=== PATIENT | male | born 1970 | race Caucasian/White ===

== ENCOUNTER → 2020-09-06 09:56 | Outpatient (CLI) | payer OTHER, SELFPAY ==
[2020-09-06 12:52] LABS: Absolute Lymphocyte Count 2.25 X10^3/uL (0.83-4.51); Absolute Neutrophil Count 2.4 X10^3/uL (2.0-7.7); Basophil# 0.08 X10^3/uL; Basophil% 1.5 % (0-1); Eosinophils% 1.8 % (0-5); Hematocrit 47.3 % (40-54); Hemoglobin 15.2 g/dL (13.0-16.5); Lymphocyte # 2.25 X10^3/ul (4.0); Lymphocyte % 41.4 % (19-41); Mean Corp Hgb Conc 32.1 g/dL (32-36); Mean Corpuscular Hgb 30.4 pg (27.0-32.0); Mean Corpuscular Volume 94.6 fL (80-94); Mean Platelet Vol. 9.3 fl (6.2-12.0); NRBC Flagged by Analyzer 0 % (0-5); Neutrophil # 2.37 X10^3/uL (2.7-7.7); Neutrophil % 43.7 % (47-70); Platelet Count 307 K/mm3 (150-450); RBC Distribution Width CV 13.5 % (11.6-14.6); RBC Distribution Width SD 47.6 fl (35.1-43.9); White Blood Count 5.4 K/mm3 (4.4-11.0)
[2020-09-06 12:55] LABS: ALB/GLOB Ratio 0.9 RATIO (0.9-2.4); AST(SGOT) 20 U/L (15-37); Alanine Aminotransfer ALT/SGPT 29 U/L (16-61); Albumin, Serum 3.9 g/dL (3.2-5.0); Alkaline Phosphatase 75 U/L (45-117); Anion Gap 2 (5-15); BUN 13 mg/dL (7-18); Calcium,Total 9.2 mg/dL (8.5-10.1); Chloride 104 mmol/L (98-107); Cholesterol 192 mg/dL (200); Creatinine, Serum 0.93 mg/dL (0.70-1.30); EST Glomerular Filtration Rate 91 mL/min (>60); Est Glom Filt Rate - Afr Amer 110 mL/min (>60); Globulin 4.2 g/dL (2.2-4.2); Glucose 90 mg/dL (74-106); High Density Lipoprotein 117 mg/dL; PSA,Total - Annual Screen 6.44 ng/mL (0.00-4.00); Potassium 4.2 mmol/L (3.5-5.1); Protein, Total 8.1 g/dL (6.4-8.2); Sodium Level 137 mmol/L (136-145); Triglycerides 55 mg/dL; Very Low Density Lipoprotein 11 mg/dL (5-40)
== END ==
PROVIDERS: PCP Family Medicine; Visit Provider Family Medicine
DX: Z00.00 Encounter for general adult medical examination without abnormal findings (principal); Z12.5 Encounter for screening for malignant neoplasm of prostate
CPT/HCPCS: 36415; 80053; 80061; 84153; 85025; G0103

== ENCOUNTER → 2020-12-28 17:14 | Outpatient (CLI) | payer OTHER, SELFPAY | PROVIDERS: PCP Family Medicine; Visit Provider Family Medicine | DX: Z11.52 Encounter for screening for COVID-19 (principal) | CPT/HCPCS: 87635; U0005; U0003 ==

== ENCOUNTER → 2022-06-04 | Outpatient (CLI) | payer OTHER, SELFPAY ==
[2022-06-04 17:59] LABS: PSA,Total - Annual Screen 6.08 ng/mL (0.00-4.00)
== END | disposition home or self-care (01) ==
LOC: BFHLAB 14:31
PROVIDERS: PCP Family Medicine; Visit Provider Family Medicine
DX: Z12.5 Encounter for screening for malignant neoplasm of prostate (principal)
CPT/HCPCS: 36415; 84153; G0103

== ENCOUNTER 2022-08-12 08:38 | Day surgery (SDC) | payer OTHER, SELFPAY ==
[2022-08-12 08:58] VITALS: BP 140/78; PULSE 55; RESP 16; TEMP 36.3; O2SAT 98; BMI 25.8
[2022-08-12] MEDS: Lactated Ringers 1,000 ML 15 ML IV (09:01)
--- NOTE | 2022-08-12 09:35 | H&P.OPEN ---
HPI - General HPI Narrative HEIDI DÍAZ, is a 52 M who presents for screening colonoscopy. Patient has never had a colonoscopy in the past. He denies any abdominal pain or blood in the stool. He has no family history of colon cancer. [facility] Medical History (Updated 08/06/22 @ 14:12 by Fabiola Garrett) Ankylosing spondylitis BPH w urinary obs/LUTS Chronic sinusitis Elevated PSA Family history of prostate cancer Former smoker History of echocardiogram History of irregular heartbeat Prostate disease Wears contact lenses Wears glasses Home Medications cholecalciferol (vitamin D3) 25 mcg (1,000 unit) capsule 25 mcg PO DAILY 07/22/22 [History Last Taken Unknown] multivitamin 1 tab PO DAILY 07/22/22 [History Last Taken Unknown] saw palmetto 160 mg capsule 160 mg PO BID 07/22/22 [History Last Taken Unknown] tamsulosin 0.4 mg capsule 0.4 mg PO QHS 07/22/22 [History Last Taken Unknown] vitamin E (dl, acetate) 45 mg (100 unit) capsule 45 mg PO DAILY 07/22/22 [History Last Taken Unknown] Allergy/AdvReac Type Severity Reaction Status Date / Time No Known Allergies Allergy Verified 08/12/22 08:56 Family History (Updated 07/22/22 @ 14:46 by Nohelia Tao) Grandfather Cancer Uncle Cancer of pharynx Father Prostate cancer Surgical History History of tonsillectomy Social History (Updated 07/22/22 @ 14:46 by Nohelia Tao) household members: spouse current occupational status: employed Smoking Status: Current some day smoker tobacco type: cigarettes Past Medical/Surgical History Planned Operation Planned Operative Procedure/s: COLONOSCOPY Previous Hospitalizations/Surgeries HX Hospitalizations: No Any Problems With Anesthesia: No You/Your Family Experience Fever (Hyperthermia) With Anes: No Cholinesterase deficiency: No Cardiovascular Hx Hypertension: No Respiratory Hx Sleep Apnea: No Hx Respiratory Tract Infection/Cold (presently): No Do You Snore Loudly (louder than talking or can be heard): No Do You Often Feel Tired/ Fatigued/ Sleepy Dring Daytime?: No Has Anyone Observed You Stop Breathing During Sleep?: No Result (for STOP score): Negative Smoking Status: Current some day smoker Neurological Does patient have nerve stimulator: No Miscellaneous Recent Exposure to Contagious Disease: No Allergies No Known Allergies Allergy (Verified 08/12/22 08:56) Discharge Is Pt Admitted From a Snf, or a [place] [facility]: No Who Could Help: After D/C, Where Do you Plan to Go: Return Home Vital Signs Vital Signs Vital Signs: 08/12/22 08:58 08/12/22 08:58 Temperature 97.4 F L Temperature Source Temporal Pulse Rate 55 L Respiratory Rate 16 Respiratory Pattern Normal Blood Pressure 140/78 H Blood Pressure Mean 98 Blood Pressure Source Monitor Blood Pressure Position Sitting Blood Pressure Location Right Arm Pulse Ox 98 Oxygen Delivery Method Room Air Weight Weight: 185 lb 3.013 oz Body Mass Index (BMI) 25.8 Physical Exam Const alert and oriented x3 HEENT normocephalic Eyes PERRL Resp normal respiratory effort and normal air movement Cardio regular rate and regular rhythm GI soft to palpation, non-tender and non-distended Extremity normal to inspection Assessment & Plan Assessment/Plan (1) Encounter for screening for malignant neoplasm of colon: PLAN: I explained endoscopy in detail to the patient. I explained the risks including but not limited to stroke or heart attack with anesthesia, perforation of the GI tract, bleeding, infection. I explained that any of these could necessitate further emergency surgery. The patient understands and all questions were answered sufficiently. The patient wishes to proceed with procedure. Rafiq Ramires MD Pager: [facility] [address] [place] [address], [address] [place] [address] Office: Surgery Risks - Colonoscopy Risks Include but are not Limited To: Risks include but are not limited to: Bleeding, perforation requiring further surgery, inability to complete colonoscopy requiring barium enema.
--- NOTE | 2022-08-12 10:00 | OP.COLON_ITS ---
Patient Name: Jignesh Stapleton Procedure Date: 08/12/2022 9:41 AM Date of : 1970 Age: 52 Procedure: Colonoscopy Indications: Screening for colorectal malignant neoplasm Providers: Rafiq Ramires MD Referring MD: Rafiq Ramires MD Medicines: Monitored Anesthesia Care Patient Profile: This is a 52 year old male. Refer to note in patient chart for documentation of history and physical. Last Colonoscopy: none. The patient's first colonoscopy is today. Complications: No immediate complications. Procedure: Pre-Anesthesia Assessment: - Prior to the procedure, a History and Physical was performed, and patient medications and allergies were reviewed. The patient's tolerance of previous anesthesia was also reviewed. The risks and benefits of the procedure and the sedation options and risks were discussed with the patient. All questions were answered, and informed consent was obtained. Prior Anticoagulants: The patient has taken no previous anticoagulant or antiplatelet agents. After reviewing the risks and benefits, the patient was deemed in satisfactory condition to undergo the procedure. After I obtained informed consent, the scope was passed under direct vision. Throughout the procedure, the patient's blood pressure, pulse, and oxygen saturations were monitored continuously. The pediatric colonoscope was introduced through the anus and advanced to the cecum, identified by appendiceal orifice and ileocecal valve. The colonoscopy was performed without difficulty. The patient tolerated the procedure well. The quality of the bowel preparation was good. Scope In: 9:48:23 AM Scope Withdrawal Time 0 hours 3 minutes 56 seconds Scope Out: 9:57:17 AM Total Procedure Duration Time 0 hours 8 minutes 54 seconds Findings: The entire examined colon appeared normal on direct and retroflexion views. Impression: - The entire examined colon is normal on direct and retroflexion views. - No specimens collected. Recommendation: - Discharge patient to home. - Resume previous diet. - Continue present medications. - Repeat colonoscopy in 10 years for screening purposes. Procedure Code(s): --- Professional --- 51246, Colonoscopy, flexible; diagnostic, including collection of specimen(s) by brushing or washing, when performed (separate procedure) Diagnosis Code(s): --- Professional --- Z12.11, Encounter for screening for malignant neoplasm of colon CPT copyright 2017 [employer] [place] [employer]. All rights reserved. The codes documented in this report are preliminary and upon branch operations coordinator review may be revised to meet current compliance requirements. Rafiq Ramires MD 08/12/2022 10:00:13 AM This report has been signed electronically. Number of Addenda: 0 Note Initiated On: 08/12/2022 9:41 AM
[2022-08-12 10:01] VITALS: BP 111/82; BP 140/78; PULSE 55; RESP 14; TEMP 36.8; O2SAT 97
--- NOTE | 2022-08-12 10:01 | OP.CCLET_ITS ---
08/12/2022 Aidan Iraheta [address] [place] [address] Re : Colonoscopy procedure for [facility] Dear Dr. Iraheta This procedure was performed on Friday, August 12, 2022. My impressions and recommendations are as follows: Impressions : - The entire examined colon is normal on direct and retroflexion views. - No specimens collected. Recommendations : - Discharge patient to home. - Resume previous diet. - Continue present medications. - Repeat colonoscopy in 10 years for screening purposes. My findings are described in the full procedure note, which is enclosed. If I can be of further assistance, please feel free to contact me at Doctor phone number(s): , Work: . Sincerely, Rafiq Ramires MD 08/12/2022 10:00:13 AM This report has been signed electronically.
[2022-08-12 10:05] VITALS: BP 110/79; BP 140/78; PULSE 54; RESP 14; O2SAT 97
[2022-08-12 10:10] VITALS: BP 112/79; BP 140/78; PULSE 65; RESP 14; O2SAT 99
[2022-08-12 10:16] VITALS: BP 110/79; BP 140/78; PULSE 57; RESP 14; TEMP 37.2; O2SAT 96
[2022-08-12 10:27] VITALS: BP 140/78
== END 2022-08-12 10:35 | disposition home or self-care (01) ==
LOC: EN 08:39 → AC 08:41
PROVIDERS: PCP Family Medicine; Referring Provider Surgery; Visit Provider Surgery
PROC: 0DJD8ZZ Inspection of Lower Intestinal Tract, Via Natural or Artificial Opening Endoscopic (ICD-10-PCS; CPT 45378; principal; 2022-08-12 09:40)
DX: Z12.11 Encounter for screening for malignant neoplasm of colon (principal); F17.200 Nicotine dependence, unspecified, uncomplicated; Z80.42 Family history of malignant neoplasm of prostate
CPT/HCPCS: 45378; J7120; J2405

== ENCOUNTER → 2023-02-04 | Outpatient (CLI) | payer OTHER, SELFPAY ==
[2023-02-04 12:57] LABS: PSA,Total- Diagnostic 6.61 ng/mL (0.0-4.0)
== END | disposition home or self-care (01) ==
LOC: BFHLAB 10:58
PROVIDERS: PCP Family Medicine; Referring Provider Family Medicine; Visit Provider Family Medicine
DX: R97.20 Elevated prostate specific antigen [PSA] (principal)
CPT/HCPCS: 36415; 84153

== ENCOUNTER → 2023-03-06 | Outpatient (CLI) | payer OTHER, SELFPAY ==
--- NOTE | 2023-03-06 07:39 | MRI_ITS ---
STUDY: MR PELVIS WITH AND WITHOUT CONTRAST (PROSTATE) REASON FOR EXAM: Male, 52 years old. Prostatomegaly with elevated PSA TECHNIQUE: Standardized multiparametric prostate MRI with T1, T2, DWI/ADC sequences were obtained in 3 orthogonal planes, and dynamic contrast enhancement sequences. 19 ml of clariscan contrast material was administered intravenously for the contrast portion of the examination. COMPARISON: None. FINDINGS: The prostate volume measures 81 mm3. The contours of the prostate gland are smooth. There is mass effect on the bladder base. The transition zone is heterogenous. PI-RADS DWI score 3 - Focal mildly hypointense on ADC and isointense/mildly hyperintense on high b-value DWI in the posterior mid transitional zone on image 19 series 600/601. PI-RADS T2W score 4 - Non-circumscribed, homogeneous, moderately hypointense, and <1.5 cm in greatest dimension as seen on image 15-16 series 8 with lesion measuring 1.0 x 1.1 cm along the posterior mid transitional zone. Contrast enhancement no early or contemporaneous enhancement; or diffuse multifocal enhancement NOT corresponding to a focal finding on T2W and/or DWI or focal ehancement responding to a lesion demonstrating features of BPH onT2WI (including features of extruded BPH in the PZ). The peripheral zone is homogenous. PI-RADS DWI score 1 - No abnormality (normal) on ADC or high b-value DWI. PI-RADS T2W score 1 - Uniformaly hyperintense (normal). Contrast enhancement no early or contemporaneous enhancement; or diffuse multifocal enhancement NOT corresponding to a focal finding on T2W and/or DWI or focal enhancement responding to a lesion demonstrating features of BPH onT2WI (including features of extruded BPH in the PZ). The seminal vesicles demonstrate normal margins and T2 signal pattern. No mass lesion or invasion depicted. The rectoprostatic angles are normal. Urinary bladder is normal without wall thickening. The vascular structures of the are normal. The visualized hollow viscus structures are normal. No bone marrow edema or mass lesion depicted. MRI/Pelvis W/WO Contrast IMPRESSION: 1. PIRADS v2.1 2019 -- 4 - High (clinically significant cancer is likely). Electronically Signed: Oniel Nagel (Brooks), at 7:33 EDT ,
== END | disposition home or self-care (01) ==
PROVIDERS: PCP Family Medicine; Referring Provider Urology; Visit Provider Urology
DX: R97.20 Elevated prostate specific antigen [PSA] (principal); Z80.42 Family history of malignant neoplasm of prostate
CPT/HCPCS: 72197; A9575

== ENCOUNTER 2023-03-16 05:48 | Day surgery (SDC) | payer OTHER, SELFPAY ==
--- NOTE | 2023-03-10 06:40 | EKG12_ITS ---
Test Reason : PRE OP Blood Pressure : / mmHG Vent. Rate : 079 BPM Atrial Rate : 079 BPM P-R Int : 166 ms QRS Dur : 082 ms QT Int : 382 ms P-R-T Axes : 041 067 054 degrees QTc Int : 438 ms Normal sinus rhythm Normal ECG Confirmed by JUSTIN BRAXTON ([id number]), general expeditor MARCELA CAZARES ([id number]) on 03/14/2023 9:35:55 AM Referred By: Rafiq Ramires Confirmed By:JUSTIN BRAXTON
[2023-03-16 06:41] VITALS: BP 133/80; PULSE 69; RESP 12; TEMP 36.2; O2SAT 98; BMI 27.0
[2023-03-16] MEDS: Lactated Ringers 1,000 ML 15 ML IV ×2 (06:45→08:45)
--- NOTE | 2023-03-16 07:13 | PCM.HP.BLA ---
History and Physical Date of Admission: 03/16/23 Intake Vital Signs 08/12/2307:58 02/17/2313:42 Height 5 ft 11 in 5 ft 11 in Weight: 196 lb BMI 27.3 BP 160/86 H Blood Pressure Location Rt brachial Position Sitting Respiration 16 Intake Visit Reasons: R INGUINAL HERNIA Chief Complaint: right inguinal hernia Production Tester Required: No Is patient in pain?: Yes (right groin) Allergies No Known Allergies Allergy (Verified 02/17/23 13:43) Medications cholecalciferol (vitamin D3) 25 mcg (1,000 unit) capsule 25 mcg PO DAILY 07/22/22 [History Confirmed 02/17/23] multivitamin 1 tab PO DAILY 07/22/22 [History Confirmed 02/17/23] saw palmetto 160 mg capsule 160 mg PO BID 07/22/22 [History Confirmed 02/17/23] tamsulosin 0.4 mg capsule 0.4 mg PO QHS 07/22/22 [History Confirmed 02/17/23] vitamin E (dl, acetate) 45 mg (100 unit) capsule 45 mg PO DAILY 07/22/22 [History Confirmed 02/17/23] PFSH Medical History (Updated 02/17/23 @ 15:[address] Rafiq Ramires MD) Ankylosing spondylitis BPH w urinary obs/LUTS Chronic sinusitis Elevated PSA Family history of prostate cancer Former smoker History of echocardiogram History of irregular heartbeat Prostate disease Wears contact lenses Wears glasses Surgical History History of tonsillectomy Family History (Updated 07/22/22 @ 14:46 by Nohelia Tao) Grandfather CancerUncle Cancer of pharynxFather Prostate cancer Social History (Updated 07/22/22 @ 14:46 by Nohelia Tao) household members: spouse current occupational status: employed Smoking Status: Current some day smoker tobacco type: cigarettes HPI HPI HPI: Patient is a 52-year-old male here for inguinal hernia. He is experiencing bulging in the right groin but he also has pain in the left. He says been going on for about a year. He reports no nausea or vomiting. ROS General General: No weight change, appetite, fatigue, colon cancer, breast cancer or weakness HEENT HEENT: No difficulty swallowing, eye injury, eye surgery, swollen glands or hoarseness Endo Endocrine: No thyroid disease, diabetes mellitus, thyroid cancer, Hair loss, heat intolerance or cold intolerance Skin Skin: No rash or changing moles Breast Breast: No left breast lump, right breast lump, nipple discharge, breast pain, abnormal mammogram, abnormal US or breast enlargement Musc Musculoskeletal: No back problems, arthritis, rheumatoid arthritis, gout or joint pain Cardio Cardiovascular: No murmur, pacemaker, heart disease, atrial fibrillation, high blood pressure, heart attack, heart stent, palpitations, shortness of breat with exertion or chest pain Psych Psychiatric: No depression, anxiety or hearing voices Resp Respiratory: No shortness of breath, No sleep apnea, No cough, No COPD, No asthma, No emphysema and No wheezing Gastro Gastrointestinal: No abdominal pain, No nausea or vomiting, No diarrhea, No constipation, No blood in stool, No acid reflux, No hemorrhoids, No ulcers, No gallbladder problem and No black,tarry stools Sundeep Hematologic: No blood thinners, No blood disorders, No bleeding, No anemia and No blood clots Neuro Neurologic: No system reviewed and no additional complaints, except as documented, No as per HPI, No abnormal gait, No abnormal hearing, No abnormal movements, No abnormal speech, No behavioral changes, No burning sensations, No confusion, No convulsions, No disequilibrium, No dizziness, No localized weakness, No frequent falls, No headache(s), No lack of coordination, No loss of vision, No memory loss, No numbness, No other visual disturbances, No radicular pain, No restless legs, No sensory deficit, No syncope, No tingling, No tremor(s), No weakness and No other Exam Const General: cooperative Orientation: alert and oriented x3 HENMT Head: normal to inspection Neck Neck: normal visual inspection and full ROM Chest Chest palpation & inspection: normal inspection of the chest Resp Effort & Inspection: normal respiratory effort Auscultation: clear to auscultation bilaterally Cardio Rate: regular rate Rhythm: regular rhythm GI Inspection: non-distended Palpation: soft, hernia indirect inguinal bilaterally and nontender Skin General: no rashes or lesions noted Neuro General: patient alert and patient oriented x3 Extrem General: full ROM Psych Appearance: grossly normal Mental Status: mental status grossly normal Assessment and Plan Assessment and Plan (1) Bilateral inguinal hernia: Status: Acute Qualifiers: Obstruction and gangrene presence: without obstruction or gangrene Recurrence: non-recurrent Qualified Code(s): K40.20 - Bilateral inguinal hernia, without obstruction or gangrene, not specified as recurrent Plan: The patient has a reducible inguinal hernia on the right. On the left side the patient's inguinal ring appears very lax. I was able to place my whole finger adjacent to his inguinal cord. I believe he likely has bilateral inguinal hernias. I discussed robotic assisted laparoscopic bilateral inguinal hernia repair with mesh. I discussed the risks including but not limited to bleeding, infection, injury to other organs such as the bowel, blood supply to the testicle, blood supply to the leg or bladder. Patient understands the risks and is willing to proceed. Rafiq Ramires MD Pager: [facility] [address] [place] [address], [address] [place] [address] Office: I have examined the patient and the H&P has been reviewed. There are no clinical changes since date of exam.
[2023-03-16] MEDS: Cefazolin 2 GM in 0.9% Normal Saline 100 ML IV (07:42)
[2023-03-16] MEDS: Bupivacaine Mpf 0.5% 30 ML VIAL (07:44)
--- NOTE | 2023-03-16 08:33 | PCM.OPRPT ---
Report of Operation Date of Procedure: 03/16/23 Pre-Operative Diagnosis: Right inguinal hernia Post-Operative Diagnosis: Right inguinal hernia Surgery/Procedure Performed:: Robotic assisted laparoscopic right inguinal hernia repair with mesh Description of Surgical Findings:: There did not appear to be a hernia on the left side Type of Anesthesia: General/Regional Estimated Blood Loss (mL): 10 Description of Procedure: Patient was brought back to the operating room and general anesthesia was induced. The abdomen was prepped and draped in usual sterile fashion. A midline incision was made superior to the umbilicus. The fascia was grasped and elevated. Veress needle was placed into the abdomen and a drop test was performed. Next the abdomen was insufflated to 15 mmHg. Veress needle was removed and the port was placed into the abdomen. Camera was placed into the abdomen and it was inspected and there were no injuries from entry. Patient was placed in Trendelenburg position. The patient had an indirect hernia on the right but there was no hernia on the left. The inguinal ring did not appear lax and there were no contents from the abdomen herniating into it. The decision was made to only fix the right side I discussed this with his and she was in agreement. The peritoneum was incised in the right lower quadrant and dissected inferiorly until the hernia was encountered. The hernia sac was reduced. Dissection was carried inferiorly. Next a large piece of ProGrip mesh was placed over the entire right inguinal region the peritoneum was then reapproximated completely covering the mesh using 3-0V lock suture. Next the abdomen was allowed to desufflate and the robot was undocked. The ports were removed. The scrotum was checked and contain both testicles. The skin incisions were injected with local anesthetic and closed with interrupted 4-0 Monocryl sutures. Steri-Strips and bandages were applied. Patient was awakened and taken to PACU in stable condition. Grafts/Implants Used: ProGrip mesh in the right groin Admit VTE Documentation VTE Mechan Device Prophylaxis: SCD's
--- NOTE | 2023-03-16 08:37 | DCINST_ITS ---
Discharge Instructions Diet Discharge Diet: Light diet - advance as tolerated Activity Discharge Activity: May Not Drive (for 2-3 days or while taking narcotic pain meds.) and May Shower (with the bandage in place 1-2 days after surgery.) Lifting Restrictions: 20 pounds for 4 weeks Additional Activity Instructions:: Climbing stairs is fine, walking is encouraged. Sitting in bed may be uncomfortable. Sitting up using your lateral muscles (sitting up sideways) is usually more comfortable. Do not drive, work heavy equipment or sign legal documents for 24 hours. If your hernia repair was an inguinal repair, you may have scrotal swelling, an ice pack and/or athletic support can provide more comfort. Pain medications may cause nausea, you should typically eat light foods as you take your pain medications. Pain medications may also cause constipation. If you have difficulty with this, discuss with your doctor. Dressing / Incision Call your doctor if your incision/area has: Continuous Slow Oozing, Sudden Increased Bleeding, Increased Pain/ Swelling, Increased Redness and Foul Smelling Discharge Call your doctor if you observe: Fever of 101 or Higher Suture Line Care: Avoid Pulling/Pushing and Avoid Pinching/Bending Remove Dressing in: 2 days (Remove clear bandages in 2 days, remove Steri-Strips in 7 to 10 days.) Cleanse incision/area with: Soap & Water Follow Up Care Please Follow Up With: Rafiq Ramires MD When: Please call to schedule 2 week follow up appointment. [phone] Test Results: Test results from this visit will be discussed in further detail at your follow- up appointment, if applicable. Discharge Plan Admission Attending Provider: Rafiq Ramires Primary Care Provider: Aidan Iraheta Instructions Additional Instructions / Restrictions: Ibuprofen and Tylenol for pain, Percocet for breakthrough. Discharge Orders/Prescriptions Prescriptions: New oxycodone-acetaminophen [Percocet] 5-325 mg tablet 1 tab PO Q4H PRN (Reason: pain) 5 Days Qty: 10 0RF No Action tamsulosin 0.4 mg capsule 0.4 mg PO QHS saw palmetto 160 mg capsule 160 mg PO BID Rx Instructions: give with meal/snack multivitamin Tablet 1 tab PO DAILY vitamin E (dl, acetate) 45 mg (100 unit) capsule 45 mg PO DAILY Other Ambulatory Orders: 12 Lead EKG (Routine) Timeframe: [id number] Location: None Selected Ordered By: Dr. Zohaib Ny Referrals / Follow Up: Aidan Iraheta DO [Primary Care Provider] - Disposition Disposition (needs filled in before D/C Order can be placed): Home, Self Care
[2023-03-16 08:40] VITALS: BP 133/80; BP 152/93; PULSE 66; RESP 18; TEMP 36.6; O2SAT 97
[2023-03-16 08:46] VITALS: BP 133/80; BP 135/85; PULSE 64; RESP 18; O2SAT 95
[2023-03-16] MEDS: Tamsulosin HCl 0.4 MG Capsule 0.8 MG PO (08:53)
[2023-03-16 08:59] VITALS: BP 133/80; BP 149/81; PULSE 57; RESP 18; TEMP 35.9; O2SAT 95
[2023-03-16 09:29] VITALS: BP 133/80
== END 2023-03-16 09:39 | disposition home or self-care (01) ==
LOC: SDC 05:49 → AC 05:49
PROVIDERS: PCP Family Medicine; Referring Provider Surgery; Visit Provider Surgery
PROC: (CPT 49650; principal; 2023-03-16 07:10)
DX: K40.20 Bilateral inguinal hernia, without obstruction or gangrene, not specified as recurrent (principal); K43.7 Other and unspecified ventral hernia with gangrene; F17.200 Nicotine dependence, unspecified, uncomplicated; Z80.42 Family history of malignant neoplasm of prostate
CPT/HCPCS: 49650; 93005; J7120; J2405

== ENCOUNTER → 2023-11-12 | Outpatient (CLI) | payer OTHER, SELFPAY ==
[2023-11-12 13:05] LABS: PSA,Total- Diagnostic 8.45 ng/mL (0.0-4.0)
== END | disposition home or self-care (01) ==
LOC: BFHLAB 10:12
PROVIDERS: PCP Family Medicine; Visit Provider Urology
DX: R97.20 Elevated prostate specific antigen [PSA] (principal)
CPT/HCPCS: 36415; 84153

== ENCOUNTER → 2025-01-04 | Outpatient (CLI) | payer OTHER, SELFPAY | END | disposition home or self-care (01) | LOC: BFHLAB 09:26 | PROVIDERS: PCP Family Medicine; Visit Provider Family Medicine | DX: Z12.5 Encounter for screening for malignant neoplasm of prostate (principal) | CPT/HCPCS: 36415; 84153; G0103 ==